=== PATIENT | female | born 1975 | race Caucasian/White ===

== ENCOUNTER 2022-12-01 11:44 | Emergency (ER) | payer BC ==
[2022-12-01 11:59] VITALS: O2SAT 100
--- NOTE | 2022-12-01 12:02 | ED Physician Documentation ---
PD HPI CHEST PAIN - Stated complaint Stated Complaint: CHEST PX - Chief complaint Chief Complaint: Cardiac - History obtained from History obtained from: Patient - Additional information Additional information: This is a very healthy 47-year-old woman with no personal or family history of ischemic heart disease or thromboembolic disease. She was carrying a canoe 8 days ago and felt a sudden pain in her left upper chest. It only lasted about 10 seconds, but then since then she has had a soreness in the same place. Gets worse if she takes a deep breath. Radiates into the armpit but no further. She is not short of breath. She denies pedal edema or calf pain. She did have recent travel, flying from [place] to here but that since the pain started. She had an episode a few nights ago with a cough and she was worried that she might of aspirated. She denies hemoptysis. PD PAST MEDICAL HISTORY - Present Medications Home Medications: Ambulatory Orders Medication Instructions Recorded Confirmed No Known Home Medications 12/01/22 12/01/22 - Allergies Allergies/Adverse Reactions: Allergies Allergy/AdvReac Type Severity Reaction Status Date / Time No Known Drug Allergies Allergy Verified 12/01/22 12:03 - Social History Does the pt smoke?: No Does the pt have substance abuse?: No - Family History Family history: reports: Non contributory PD ED PE NORMAL - Vitals Vital signs reviewed: Yes - General General: Alert and oriented X 3, No acute distress - Neck Neck: Supple, no meningeal sign, No JVD - Cardiac Cardiac: RRR, No murmur - Respiratory Respiratory: No respiratory distress, Clear bilaterally - Abdomen Abdomen: Non tender - Extremities Extremities: No edema, No calf tenderness / cord - Neuro Neuro: Alert and oriented X 3, Normal speech Results - Vitals Vitals: Vital Signs - 24 hr 12/01/22 12/01/22 11:48 13:45 Temperature 36.0 C L Heart Rate 54 L 50 L Respiratory 18 21 Rate Blood Pressure 120/66 110/59 L O2 Saturation 100 100 Oxygen O2 Source Room air - EKG (time done) 1154 EKG releavant findings:: EKG personally interpreted by author of this note. Relevant findings are: Rate: Rate (enter#) (48) Rhythm: Sinus bradycardia [place]: Normal Intervals: Normal [place] QRS: Normal Ischemia: Normal ST segments - Labs Labs: Laboratory Tests 12/01/22 12/01/22 12/01/22 12:12 12:12 12:12 WBC 4.5 L RBC 4.45 Hgb 14.2 Hct 42.7 MCV 96.0 MCH 31.9 H MCHC 33.3 RDW 11.6 L Plt Count 209 MPV 11.3 H Neut # (Auto) 2.4 Lymph # (Auto) 1.3 L [place] # (Auto) 0.4 Eos # (Auto) 0.3 Baso # (Auto) 0.0 Absolute Nucleated RBC 0.00 Nucleated RBC % 0.0 Sodium 136 Potassium 4.1 Chloride 105 Carbon Dioxide 28 Anion Gap 3.0 L BUN 13 Creatinine 0.7 Estimated GFR (MDRD) 90 Glucose 91 Calcium 9.7 Total Bilirubin 0.5 AST 18 ALT 14 Alkaline Phosphatase 40 L Troponin I High Sens < 2.3 L Total Protein 7.5 Albumin 4.2 Globulin 3.3 Albumin/Globulin Ratio 1.3 Lipase 36 - Rads (name of study) 2v cxr Relevant Findings:: Final report received, EMP independent interpretation of test PD Medical Decision Making - ED course ED course: PERC Neg HEART zero Departure - Departure Disposition: 01 Home, Self Care Clinical Impression: Chest wall pain Condition: Good Record reviewed to determine appropriate education?: Yes Instructions: ED Strain Chest Wall Comments: Results of diagnostic testing including EKG, troponin, and chest x-ray were normal/negative. You score 0 for scoring systems for ruling out both PE and coronary syndromes (PERC and HEART scores.) Call your doctor to arrange a follow-up appointment, make the next available appointment. In the interim, return anytime if worse or if new symptoms develop. Discharge Date/Time: 12/01/22 13:54
[2022-12-01 12:17] LABS: BASOPHILS % (AUTO) 0.9 %; EOSINOPHILS # (AUTO) 0.3 10^3/uL (0.0-0.7); HCT - HEMATOCRIT 42.7 % (37.0-47.0); HGB - HEMOGLOBIN 14.2 g/dL (12.0-16.0); LYMPHOCYTES # (AUTO) 1.3 10^3/uL (1.5-3.5); MEAN CORPUSCULAR HEMOGLOBIN 31.9 pg (27.0-31.0); MEAN CORPUSCULAR HGB CONC 33.3 g/dL (32.0-36.0); MEAN PLATELET VOLUME 11.3 fL (7.9-10.8); MONOCYTES # (AUTO) 0.4 10^3/uL (0.0-1.0); MONOCYTES % (AUTO) 8.1 %; NEUTROPHILS # (AUTO) 2.4 10^3/uL (1.5-6.6); NEUTROPHILS % (AUTO) 54.8 %; PLT - PLATELET COUNT 209 10^3/uL (130-450); RED BLOOD COUNT 4.45 10^6/uL (4.20-5.40); RED CELL DISTRIBUTION WIDTH 11.6 % (12.0-15.0); WHITE BLOOD COUNT 4.5 x10^3/uL (4.8-10.8)
[2022-12-01 12:30] LABS: ALBUMIN 4.2 g/dL (3.2-5.5); ALBUMIN/GLOBULIN RATIO 1.3 (1.0-2.2); BILIRUBIN,TOTAL 0.5 mg/dL (0.2-1.0); CALCIUM 9.7 mg/dL (8.5-10.3); CREATININE 0.7 mg/dL (0.6-1.3); POTASSIUM 4.1 mmol/L (3.5-4.5); TOTAL PROTEIN 7.5 g/dL (6.4-8.9)
--- NOTE | 2022-12-01 13:12 | XRAY Report ---
PROCEDURE: Chest 2 View X-Ray INDICATIONS: cough TECHNIQUE: 2 views of the chest were acquired. COMPARISON: None. FINDINGS: Surgical changes and devices: None. Lungs and pleura: No pleural effusions or pneumothorax. Lungs are clear. Mediastinum: Mediastinal contours appear normal. Heart size is normal. Bones and chest wall: No suspicious bony lesions. Overlying soft tissues appear unremarkable. IMPRESSION: No acute cardiopulmonary process. Reviewed by: Bayron Pepe MD on 12/01/2022 12:11 PM [facility]DT Approved by: Bayron Ppee MD on 12/01/2022 12:11 PM AKDT Station ID: [id number]
[2022-12-01 13:47] VITALS: BP 110/59
== END 2022-12-01 13:54 | disposition home or self-care (01) ==
LOC: ED 11:44
DX: R07.89 Other chest pain (principal)
CPT/HCPCS: 36415; 80053; 83690; 84484; 85025; 93005; 99283; 99284